=== PATIENT | female | born 1945 | race Caucasian/White ===

== ENCOUNTER 2018-02-23 09:29 | Emergency (ER) | payer MEDICARE, BC ==
[2018-02-23 09:34] VITALS: RESP 20; TEMP 97.2
[2018-02-23] MEDS ORDERED: KETOROLAC TROMETHAMINE 30 MG/ML SOL IM ONE (09:56)
[2018-02-23] MEDS ORDERED: LORAZEPAM 0.5 MG TAB PO ONE (09:57)
[2018-02-23] MEDS ORDERED: KETOROLAC TROMETHAMINE 30 MG/ML SOL ONE (10:21)
[2018-02-23 10:26] VITALS: PULSE 71; O2SAT 99
[2018-02-23 11:39] VITALS: BP 158/91
== END 2018-02-23 11:38 | disposition home or self-care (01) | DRG 103 ==
LOC: ED 09:29
DX: G43.909 Migraine, unspecified, not intractable, without status migrainosus (principal); R09.81 Nasal congestion
CPT/HCPCS: 96372; 99283; J1885